=== PATIENT | female | born 1985 | race Caucasian/White ===

== ENCOUNTER 2020-09-24 12:50 | Emergency (ER) | payer OTHER ==
[~2020-09-24 12:50] MED LIST: CLARITIN10 MG PO; FLONASE 0.05% N16 GM; KEFLEX500 MG PO
[2020-09-24] MEDS ORDERED: AUGMENTIN 875-1 EACH PO (14:24)
[2020-09-24] MEDS ORDERED: AMOXICILLIN875 MG PO (14:29)
== END 2020-09-24 14:36 | disposition home or self-care (01) ==
LOC: ER1 12:50
DX: K04.7 Periapical abscess without sinus (principal); F17.200 Nicotine dependence, unspecified, uncomplicated
CPT/HCPCS: 99282

== ENCOUNTER 2020-11-17 16:45 | Emergency (ER) | payer OTHER ==
[~2020-11-17 16:45] MED LIST changes: +AMOXICILLIN875 MG PO; +AUGMENTIN 875-1 EACH PO
[2020-11-17] MEDS ORDERED: ZOFRAN ODT 4 MG4 MG PO (17:17)
[2020-11-17] MEDS ORDERED: XYLOCAINE VISC100 ML EXT (17:17)
[2020-11-17] MEDS ORDERED: PENVEE K 500 M500 MG PO (17:17)
== END 2020-11-17 17:22 | disposition home or self-care (01) ==
LOC: ER1 16:45
DX: O99.612 Diseases of the digestive system complicating pregnancy, second trimester (principal); K02.9 Dental caries, unspecified; K04.01 Reversible pulpitis; O99.332 Smoking (tobacco) complicating pregnancy, second trimester; F17.210 Nicotine dependence, cigarettes, uncomplicated; Z88.2 Allergy status to sulfonamides; Z88.5 Allergy status to narcotic agent
CPT/HCPCS: 99282

== ENCOUNTER 2020-11-23 13:02 | Emergency (ER) | payer OTHER ==
[~2020-11-23 13:02] MED LIST changes: +PENVEE K 500 M500 MG PO; +XYLOCAINE VISC100 ML EXT; +ZOFRAN ODT 4 MG4 MG PO
== END 2020-11-23 14:57 | disposition left against medical advice (07) ==
LOC: ER1 13:02
DX: Z53.21 Procedure and treatment not carried out due to patient leaving prior to being seen by health care provider (principal)

== ENCOUNTER 2021-05-11 19:14 | Emergency (ER) | payer OTHER ==
[2021-05-11] MEDS ORDERED: MEDROL DOSEPAK 24 MG PO (21:52)
[2021-05-11] MEDS ORDERED: DELSYM30 MG/5 ML PO (21:52)
[2021-05-11] MEDS ORDERED: IBUPROFEN600 MG PO (21:52)
== END 2021-05-11 21:55 | disposition home or self-care (01) ==
LOC: ER1 19:14
DX: U07.1 COVID-19 (principal); F17.210 Nicotine dependence, cigarettes, uncomplicated
CPT/HCPCS: 99284; U0002